=== PATIENT | male | born 1955 | race Caucasian/White ===

== ENCOUNTER 2023-01-15 14:35 | Emergency (ER) | payer MEDICARE, BC ==
[~2023-01-15] VITALS: Ht 175.2 cm; Wt 59.0 kg
== END 2023-01-15 19:01 | disposition left against medical advice (07) ==
LOC: ED 14:35
DX: Z48.00 Encounter for change or removal of nonsurgical wound dressing (principal); Z53.21 Procedure and treatment not carried out due to patient leaving prior to being seen by health care provider